=== PATIENT | male | born 1990 | race American Indian/Alaskan Native ===

== ENCOUNTER 2019-04-15 16:02 | Emergency (ER) | payer BC ==
--- NOTE | 2019-04-15 16:51 | Emergency Department Report ---
ED General Adult HPI - General Chief complaint: Overdose Stated complaint: DRUG OD Time Seen by Provider: 04/15/19 16:49 Source: EMS Mode of arrival: Ambulatory Limitations: No Limitations - History of Present Illness Initial comments: 28-year-old male with past medical history of hypertension hypercholesterolemia presents with the complaint of being found unresponsive. Patient states that at 12 PM he did use some we and his fiance found him unresponsive at 3:00 laying on the floor. Fiance states that it was saliva on the floor that he was foamin g at the mouth. She also states she touched him and he was snoring but breathing and that she did not do CPR. EMS arrived and gave patient Narcan therapy which helped patient to regain responsiveness. Patient currently denies any chest pain or shortness of breath. Patient currently denies abdominal pain but complains of nausea. Severity scale (0 -10): 0 - Related Data Allergies Allergy/AdvReac Type Severity Reaction Status Date / Time No Known Allergies Allergy Unverified 04/15/19 18:45 ED Review of Systems ROS: Stated complaint: DRUG OD Other details as noted in HPI Constitutional: denies: chills, fever Eyes: denies: eye pain, eye discharge, vision change ENT: denies: ear pain, throat pain Respiratory: denies: cough, shortness of breath, wheezing Cardiovascular: denies: chest pain, palpitations Endocrine: no symptoms reported Gastrointestinal: nausea, vomiting. denies: abdominal pain, diarrhea Genitourinary: denies: urgency, dysuria Musculoskeletal: denies: back pain, joint swelling, arthralgia Skin: denies: rash, lesions Neurological: denies: headache, weakness, paresthesias Psychiatric: denies: anxiety, depression Hematological/Lymphatic: denies: easy bleeding, easy bruising ED Past Medical Hx - Past Medical History Previous Medical History?: Yes Hx Hypertension: Yes Hx CVA: No Hx Heart Attack/AMI: No Hx Congestive Heart Failure: No Hx Diabetes: No Hx Deep Vein Thrombosis: No Hx Pulmonary Embolism: No Hx GERD: No Hx Liver Disease: No Hx Renal Disease: No Hx of Cancer: No Hx Sickle Cell Disease: No Hx Arthritis: No Hx Headaches / Migraines: No Hx Seizures: No Hx Kidney Stones: No Hx Psychiatric Treatment: No Hx Asthma: No Hx COPD: No Hx Tuberculosis: No Hx Dementia: No Hx HIV: No - Surgical History Past Surgical History?: No Hx Coronary Stent: No Hx Open Heart Surgery: No Hx Pacemaker: No Hx Internal Defibrillator: No Hx Cholecystectomy: No Hx Appendectomy: No Hx Breast Surgery: No - Social History Smoking Status: Current Every Day Smoker Substance Use Type: Marijuana ED Physical Exam - General Limitations: No Limitations General appearance: alert, in no apparent distress, other (dehydrated) - Head Head exam: Present: atraumatic, normocephalic - Eye Eye exam: Present: normal appearance - ENT ENT exam: Present: mucous membranes dry - Neck Neck exam: Present: normal inspection - Respiratory Respiratory exam: Present: normal lung sounds bilaterally. Absent: respiratory distress - Cardiovascular Cardiovascular Exam: Present: regular rate, normal rhythm. Absent: systolic murmur, diastolic murmur, rubs, gallop - GI/Abdominal GI/Abdominal exam: Present: soft, normal bowel sounds. Absent: distended, tenderness - Rectal Rectal exam: Present: deferred - Extremities Exam Extremities exam: Present: normal inspection - Back Exam Back exam: Present: normal inspection - Neurological Exam Neurological exam: Present: alert, oriented X3, CN II-XII intact. Absent: motor sensory deficit - Psychiatric Psychiatric exam: Present: normal affect, normal mood - Skin Skin exam: Present: warm, dry, intact, normal color. Absent: rash ED Course Vital Signs 04/15/19 04/15/19 04/15/19 16:16 16:20 16:31 Temperature 97.6 F Pulse Rate 87 93 H 88 Respiratory 13 19 16 Rate Blood Pressure 141/82 141/82 Blood Pressure 141/82 [Right] O2 Sat by Pulse 98 99 97 Oximetry 04/15/19 04/15/19 04/15/19 16:45 17:00 17:15 Temperature Pulse Rate 91 H 87 Respiratory 20 20 22 Rate Blood Pressure 141/82 130/79 130/79 Blood Pressure [Right] O2 Sat by Pulse 96 96 97 Oximetry 04/15/19 04/15/19 04/15/19 17:31 17:45 18:00 Temperature Pulse Rate Respiratory 18 16 17 Rate Blood Pressure 130/79 130/79 145/86 Blood Pressure [Right] O2 Sat by Pulse 97 92 93 Oximetry 04/15/19 04/15/19 04/15/19 18:41 18:45 19:01 Temperature Pulse Rate Respiratory 18 18 16 Rate Blood Pressure 145/86 145/86 145/86 Blood Pressure [Right] O2 Sat by Pulse 95 92 93 Oximetry 04/15/19 04/15/19 04/15/19 19:15 19:19 19:30 Temperature Pulse Rate Respiratory 17 18 19 Rate Blood Pressure 159/78 161/74 Blood Pressure [Right] O2 Sat by Pulse 92 88 Oximetry 04/15/19 19:45 Temperature Pulse Rate Respiratory 19 Rate Blood Pressure 161/74 Blood Pressure [Right] O2 Sat by Pulse 89 Oximetry ED Medical Decision Making - Lab Data Result diagrams: 04/15/19 17:41 04/15/19 17:41 - EKG Data -: EKG Interpreted by Nc EKG shows normal: sinus rhythm Rate: normal - EKG Data Interpretation: no acute changes - Medical Decision Making Patient received IV fluids while here in emergency department as well as Zofran therapy. Patient currently asymptomatic. The patient be discharged follow up with PCP. - Differential Diagnosis Overdose; Dehdyration; Intracranial Bleed; Anemia; Electrolyte Abnormality; Critical care attestation.: If time is entered above; I have spent that time in minutes in the direct care of this critically ill patient, excluding procedure time. ED Disposition Clinical Impression: Altered mental status, unspecified, Marijuana use Disposition: DC-01 TO HOME OR SELFCARE Is pt being admited?: No Condition: Stable Time of Disposition: 20:26 Print Language: BHUTANESE
[2019-04-15] MEDS ORDERED: ZOFRAN IV ONE (17:29)
[2019-04-15] MEDS ORDERED: NACL 0.9% 1000 ML 1,000 ML IV ONE (17:29)
[2019-04-15 18:02] LABS: Basophils # (Auto) 0.1 K/mm3 (0.0-0.1); Basophils % (Auto) 0.4 % (0.0-1.8); Eosinophils # (Auto) 0.1 K/mm3 (0.0-0.4); Eosinophils % (Auto) 0.5 % (0.0-4.3); Hematocrit 46.3 % (35.5-45.6); Hemoglobin 15.3 gm/dl (11.8-15.2); Lymphocytes # (Auto) 1.2 K/mm3 (1.2-5.4); Lymphocytes % (Auto) 6.6 % (13.4-35.0); Mean Corpuscular HGB Conc 33 % (32-34); Mean Corpuscular Volume 86 fl (84-94); Monocytes % (Auto) 5.5 % (0.0-7.3); Platelet Count 288 K/mm3 (140-440); Red Blood Count 5.42 M/mm3 (3.65-5.03); Red Cell Distribution Width 13.8 % (13.2-15.2)
--- NOTE | 2019-04-15 18:16 | XRay Report ---
PROCEDURE: XR CHEST 1V AP TECHNIQUE: Chest radiograph single view. HISTORY: Overdose COMPARISONS: None . FINDINGS: Decreased inspiration and crowding of bronchovascular markings. No evidence of airspace consolidation or pleural effusions. Pulmonary vasculature is within normal limits. Cardiac silhouette is not enlarged. IMPRESSION: Decreased inspiration. No radiographic evidence of acute disease. This document is electronically signed by Chavo Garcia MD., April 15 2019 06:14:19 PM ET
[2019-04-15 18:18] LABS: Alanine Aminotransferase 25 units/L (7-56); Albumin 4.7 g/dL (3.9-5); BUN/Creatinine Ratio 9; Blood Urea Nitrogen 12 mg/dL (9-20); Hemolysis Index 10
[2019-04-15 19:20] LABS: Amphetamine Screen,Urine PRESUMPTIVE NEGATIVE; Benzodiazepines Screen,Urine PRESUMPTIVE NEGATIVE; Cocaine Screen,Urine PRESUMPTIVE NEGATIVE; Methadone Screen,Urine PRESUMPTIVE NEGATIVE; Opiate Screen,Urine PRESUMPTIVE NEGATIVE
[2019-04-15 19:46] VITALS: BP 161/74
--- NOTE | 2019-04-15 19:53 | Cat Scan Report ---
PROCEDURE: CT HEAD/BRAIN WO CON TECHNIQUE: Computerized tomography of the head was performed without contrast material. CT DOSE LENGTH PRODUCT: 920.5 mGycm HISTORY: Overdose COMPARISONS: None . FINDINGS: There is no evidence of an acute intracranial process, intracranial hemorrhage or mass effect. The ventricles are normal size. The visualized portions of the orbits, paranasal and mastoid sinuses are notable for moderate right m axillary sinus mucosal thickening. The bony structures are unremarkable. There is no evidence of fracture. IMPRESSION: 1. No evidence of an acute intracranial process, intracranial hemorrhage or mass effect. 2. Right maxillary sinus mucosal thickening.. This document is electronically signed by Gita Hall MD., April 15 2019 07:51:14 PM ET
[2019-04-15 19:58] LABS: Cannabinoid Screen,Urine PRESUMPTIVE POSITIVE
== END 2019-04-15 20:42 | disposition home or self-care (01) ==
LOC: ED 16:02
DX: R41.82 Altered mental status, unspecified (principal); E86.0 Dehydration; I10 Essential (primary) hypertension; F12.90 Cannabis use, unspecified, uncomplicated
CPT/HCPCS: 36415; 70450; 71045; 80053; 80307; 82550; 83690; 84484; 85025; 93005; 93010; 96361; 96374; 99285; G0480; J2405; J7030; 80320